=== PATIENT | female | born 2005 | race Two or more races ===

== ENCOUNTER 2024-11-25 02:03 | Emergency (ER) | payer OTHER ==
[~2024-11-25] VITALS: Ht 160 cm; Wt 54.4 kg
[2024-11-25] MEDS ORDERED: 0.9 % SODIUM CHLORIDE 1,000 ML IV STA (03:13)
[2024-11-25] MEDS ORDERED: FLUMAZENIL 0.5 MG/5 ML ML IV STA ×2 (03:14→03:18)
[2024-11-25] MEDS ORDERED: NALOXONE HCL 0.4 MG/ML AMPUL IV STA ×2 (03:14→03:19)
[2024-11-25 03:35] LABS: HEMATOCRIT 38.3 % (36.0-45.00); HEMOGLOBIN 13.2 g/dL (12.0-15.00); MEAN CORPUSCULAR HEMOGLOBIN 32.7 pg (27.00-32.0); MEAN CORPUSCULAR HGB CONC 34.5 g/dl (32.0-36.0); PLATELET COUNT 304 K/uL (150-450); RED BLOOD COUNT 4.03 M/uL (4.00-6.00); RED CELL DISTRIBUTION WIDTH 12.6 % (11.5-14.5)
[2024-11-25 03:56] LABS: ABG PH 7.344 (7.35-7.45); ABG pCO2 46.5 mmHg (35-45); BASE EXCESS -1.3 mmol/l; BICARBONATE 24.7 mmol/l (23-25); SaO2 97.9 %; Tco2 26.2 mmol/l
[2024-11-25 03:57] LABS: INR 0.98; PARTIAL THROMBOPLASTIN TIME 28.1 SECONDS (22.0-34.0); PROTHROMBIN TIME 10.7 SECONDS (9.0-11.5)
[2024-11-25 03:58] LABS: allen test SATISFACTORY; o2 21 %; puncture site RADIAL LEFT
[2024-11-25 03:59] LABS: ALBUMIN 3.8 gm/dL (3.4-5.0); BILIRUBIN TOTAL 0.37 mg/dL (0.3-1.2); CALCIUM 8.8 mg/dL (8.5-10.1); CREATININE SERUM 1.04 mg/dL (0.55-1.02); GFR 67.56; GLOBULINA 4.1 G/DL (2.4-3.5); POTASSIUM 3.61 mEq/L (3.5-5.1); TOTAL PROTEIN 7.9 gm/dL (6.4-8.2)
[2024-11-25 08:54] LABS: PH,URINE 5.5 (5.0-8.0); URINE APPEARANCE Clear; URINE BILIRRUBIN Negative (NEGATIVE); URINE BLOOD Moderate; URINE COLOR Yellow; URINE GLUCOSE Negative (NEGATIVE); URINE KETONE Negative (NEGATIVE); URINE LEUKOCYTE Negative; URINE NITRATE Negative; URINE PROTEIN Trace (NEGATIVE); URINE UROBILINOGEN 0.2 E.U./dl
[2024-11-25 08:56] LABS: URINE BACTERIA 2131.9 uL (0.0-1933); URINE EPITHELIAL CELLS 16.6 uL (0.0-38.8); URINE WBC 7.4 uL (0.0-23.2)
[2024-11-25 09:10] LABS: COCAINE NEGATIVE (NEGATIVE); METHADONE NEGATIVE (NEGATIVE); OPIATES NEGATIVE (NEGATIVE); THC ( Cannabinoids) POSITIVE (NEGATIVE)
== END 2024-11-25 10:58 | disposition home or self-care (01) ==
LOC: ER 02:03
DX: F10.10 Alcohol abuse, uncomplicated (principal); F19.90 Other psychoactive substance use, unspecified, uncomplicated; Z91.018 Allergy to other foods